=== PATIENT | male | born 1990 | race Asian ===

== ENCOUNTER 2024-11-23 19:59 | Emergency (ER) | payer OTHER ==
[~2024-11-23] VITALS: Ht 177.8 cm; Wt 106.8 kg
[2024-11-23] MEDS: PERTUSS(ACELL),DIPH,TET/PF 0.5 ML SYRINGE [ADULT] IM. ONE (22:47)
[2024-11-23] MEDS ORDERED: AMOX-457 PO (23:02)
[2024-11-23 23:21] VITALS: BP 129/77; PULSE 85; RESP 16; TEMP 97.3; O2SAT 97
== END 2024-11-23 23:27 | disposition home or self-care (01) ==
LOC: EMS 20:02
DX: S50.811A Abrasion of right forearm, initial encounter (principal); Z79.899 Other long term (current) drug therapy; Y04.1XXA Assault by human bite, initial encounter; Y93.89 Activity, other specified; Y92.89 Other specified places as the place of occurrence of the external cause; Y99.8 Other external cause status
CPT/HCPCS: 90471; 90715; 99283